=== PATIENT | male | born 1980 | race Caucasian/White ===

== ENCOUNTER → 2024-04-07 10:22 | Outpatient (REF) | payer OTHER, SELFPAY | LOC: RAD 10:22 | PROVIDERS: ATTENDING PHYSICIAN Nurse Practitioner | DX: M25.512 Pain in left shoulder (principal) | CPT/HCPCS: 73030 ==

== ENCOUNTER 2024-11-03 06:24 | Day surgery (SDC) | payer OTHER, SELFPAY ==
[2024-11-03 07:24] LABS: Glucose - Point of Care 79 mg/dl (70-99)
== END 2024-11-03 08:48 | disposition home or self-care (01) ==
LOC: GI 06:24
PROVIDERS: ATTENDING PHYSICIAN Student in an Organized Health Care Education/Training Program
DX: Z12.11 Encounter for screening for malignant neoplasm of colon (principal); D12.3 Benign neoplasm of transverse colon; K62.89 Other specified diseases of anus and rectum
CPT/HCPCS: 45385; 88305; 82962

== ENCOUNTER 2025-03-26 06:28 | Day surgery (SDC) | payer OTHER, SELFPAY ==
[2025-03-26 07:23] LABS: Glucose - Point of Care 110 mg/dl (70-99)
== END 2025-03-26 09:01 | disposition home or self-care (01) ==
LOC: GI 06:28
PROVIDERS: ATTENDING PHYSICIAN Student in an Organized Health Care Education/Training Program
DX: Z12.11 Encounter for screening for malignant neoplasm of colon (principal); K57.30 Diverticulosis of large intestine without perforation or abscess without bleeding; K62.89 Other specified diseases of anus and rectum; Z86.0101 Personal history of adenomatous and serrated colon polyps
CPT/HCPCS: G0105; 82962